=== PATIENT | male | born 1940 | race Hispanic/Latino ===

== ENCOUNTER → 2017-12-03 | Day surgery (SDC) | payer MEDICARE ==
[2017-12-01 08:20] LABS: BASOPHILS # (AUTO) 0.1 (0.0-0.1); BASOPHILS % 1.8 % (0.0-1.0); EOSINOPHILS # (AUTO) 0.1 (0.0-0.4); EOSINOPHILS % 2.9 % (0.0-6.0); HEMATOCRIT 44.3 % (38.2-49.6); LYMPHOCYTES # (AUTO) 1.3 (1.0-3.2); LYMPHOCYTES % 28.8 % (18.0-39.1); MEAN CORPUSCULAR HEMOGLOBIN 32.1 pg (28-32); MEAN CORPUSCULAR HGB CONC 33.9 g/dL (31-35); MEAN CORPUSCULAR VOLUME 94.7 fL (81-99); MONOCYTES # (AUTO) 0.3 (0.2-0.8); MONOCYTES % 7.3 % (4.4-11.3); NEUTROPHILS # (AUTO) 2.7 (2.1-6.9); PLATELET COUNT 230 x10e3/uL (140-360); RED BLOOD COUNT 4.68 x10e6/uL (4.3-5.7); RED CELL DISTRIBUTION WIDTH 13.3 % (11.7-14.4)
[~2017-12-03] MED LIST: ALENDRONATE SOD70 MG PO; CALCIUM; CLOBETASOL1 EA/15 GM; COUMADIN4 MG PO; EPINEPHRINE HCL INJ 1 MG/ML AMP ONE; FENTANYL CITRATE/PF 100MCG/2 ML INJ ONE; FLUTICASONE PRO16 GM; HYOSCYAMINE SULFATE 0.5 MG/ML AMP ONE; KETOCONAZOLE120 ML; LOPID600 MG PO; MIDAZOLAM HCL 2 MG/2 ML VIAL ONE; NEUPRO1 EAC1; VIT D PO; XARELTO20 MG
[2017-12-03 13:30] VITALS: BP 141/84
[2017-12-03 13:53] LABS: INR 1.04; PROTHROMBIN TIME 14.5 seconds (11.9-14.5)
[2017-12-03 13:58] LABS: ALBUMIN 3.9 g/dL (3.5-5.0); ALBUMIN/GLOBULIN RATIO 1.2 (0.8-2.0); ANION GAP 18.3 mmol/L (8-16); CALCIUM 9.7 mg/dL (8.4-10.2); CREATININE, SERUM 1.17 mg/dL (0.72-1.25); POTASSIUM 4.3 mmol/L (3.5-5.1)
--- NOTE | 2017-12-03 15:27 | Operative Report ---
DATE OF PROCEDURE: December 03, 2017 REFERRING PHYSICIAN: Dr. Ike Renee. PROCEDURES PERFORMED: 1. Esophagogastroduodenoscopy with biopsies. 2. Colonoscopy. INDICATIONS FOR ESOPHAGOGASTRODUODENOSCOPY: Dyspepsia. INDICATIONS FOR COLONOSCOPY: Colorectal cancer screening. MEDICATION: Patient was done under MAC. Please see anesthesiologist's note. PROCEDURE: With patient in the left lateral decubitus position, the flexible fiberoptic Olympus gastroscope was introduced into the esophagus under direct visualization without any difficulty. There was some patchy erythema noted in the distal esophagus. The scope was then advanced with ease into the stomach, traversing a small sliding hiatal hernia. Mucosa overlying the antrum and the body revealed some patchy erythema and mild to moderate edema, and biopsies were obtained and sent to stain for H. pylori. Pyloric channel was somewhat stenotic, but it opened up nicely after being traversed several times with the scope. The scope was advanced all the way to the 2nd portion of the duodenum. The mucosa overlying the proximal 2nd portion and the duodenal bulb appeared to be within normal limits. The scope was then withdrawn back into the stomach and retroflexed. Mucosa overlying the fundus and the cardia appeared to be within normal limits. The scope was then straightened out. It was subsequently withdrawn. Patient tolerated the procedure well. IMPRESSION: 1. Distal esophagitis, mild. 2. Grade 1 esophageal varices without active bleeding or stigmata of recent hemorrhage. 3. Small sliding hiatal hernia. 4. Gastritis biopsied. Biopsies sent to stain for H. pylori. PLAN: Follow up histology. Initiate Protonix 40 mg 1 p.o. q.a.m. a.c. Patient was then turned around and after adequate lubrication of the anal canal, a flexible fiberoptic Olympus colonoscope was inserted into the rectum with ease and advanced all the way to the cecum. It was then withdrawn slowly. Mucosa overlying the cecum, ascending colon, transverse colon appeared to be within normal limits. Diverticular disease was noted to involve the distal descending and the sigmoid colon. The rectum appeared to be within normal limits. The scope was then retroflexed into the distal rectum and moderate-sized internal hemorrhoids were noted, none of which was actively bleeding. The scope was then straightened out. It was subsequently withdrawn. Patient tolerated the procedure well. IMPRESSION: 1. Diverticulosis. 2. Internal hemorrhoids, none actively bleeding. PLAN: Initiate high-fiber low-fat diet. Initiate high-fiber supplement. No followup colonoscopy is needed. Job#: [id number] cc:IKE RENEE MD
== END | disposition home or self-care (01) ==
LOC: OR 08:45
PROVIDERS: ATTEND Internal Medicine Gastroenterology
DX: Z12.11 Encounter for screening for malignant neoplasm of colon (principal); R12 Heartburn; K59.00 Constipation, unspecified; R63.4 Abnormal weight loss; R49.0 Dysphonia; K20.9 Esophagitis, unspecified; I85.00 Esophageal varices without bleeding; K44.9 Diaphragmatic hernia without obstruction or gangrene; K29.70 Gastritis, unspecified, without bleeding; K57.30 Diverticulosis of large intestine without perforation or abscess without bleeding; K64.8 Other hemorrhoids; G47.33 Obstructive sleep apnea (adult) (pediatric); I25.10 Atherosclerotic heart disease of native coronary artery without angina pectoris; Z79.01 Long term (current) use of anticoagulants; I48.91 Unspecified atrial fibrillation; I49.9 Cardiac arrhythmia, unspecified; Z01.810 Encounter for preprocedural cardiovascular examination; Z01.812 Encounter for preprocedural laboratory examination
CPT/HCPCS: 43239; G0105; 36415; 45378; 80053; 85025; 85610; 88305; 88312; 93005; J0171; J1980; J2250

== ENCOUNTER → 2018-01-06 | Outpatient (CLI) | payer MEDICARE ==
[~2018-01-06] MED LIST changes: -EPINEPHRINE HCL INJ 1 MG/ML AMP ONE; -FENTANYL CITRATE/PF 100MCG/2 ML INJ ONE; -HYOSCYAMINE SULFATE 0.5 MG/ML AMP ONE; -MIDAZOLAM HCL 2 MG/2 ML VIAL ONE
--- NOTE | 2018-01-06 10:21 | Diagnostic Imaging Report ---
PROCEDURE:US LIVER COMPARISON:None. INDICATIONS:ESOPHAGEAL VARICES W/O BLEEDING TECHNIQUE: Lozada-scale and color doppler transverse and longitudinal images of the right upper quadrant of the abdomen were obtained. FINDINGS: Liver: 12.7 cm in length in right mid-clavicular line. Normal parenchymal echogenicity without overt surface nodularity. No masses. Main portal vein: 0.8 cm in caliber. Hepatopetal flow. Gallbladder: Status post cholecystectomy. Common Bile Duct: 0.3 cm in caliber. Right kidney: 10.1 cm in length. Normal renal cortical echogenicity. No solid masses or hydronephrosis. Pancreas: The visualized portions are unremarkable. Inferior vena cava: Patent Aorta: Non-aneurysmal Ascites: None in the right upper quadrant of the abdomen. CONCLUSION: No overt sonographic evidence of cirrhosis or portal hypertension in this patient with reported history of esophageal varices. Status post cholecystectomy. Dictated by: Michael Sloan M.D. on 01/06/2018 at 10:29 Electronically approved by: Michael Sloan M.D. on 01/06/2018 at 10:29
== END ==
LOC: US 07:30
PROVIDERS: ATTEND Internal Medicine Gastroenterology
DX: I85.00 Esophageal varices without bleeding (principal)
CPT/HCPCS: 76705

== ENCOUNTER 2018-06-19 17:30 | Emergency (ER) | payer MEDICARE ==
[~2018-06-19] VITALS: Ht 177.8 cm; Wt 72.6 kg
--- OUTSIDE RECORDS SUMMARY | 2018-06-19 17:34 | XMS REPORT ---
[facility] Address Unknown Phone Unavailable Care Team Providers Care Photo Colorer Name Role Phone MANUEL CURRY Unavailable Unavailable Problems This patient has no known problems. Allergies, Adverse Reactions, Alerts This patient has no known allergies or adverse reactions. Medications This patient has no known medications. Results Test Description Test Time Test Comments Text Results Atomic Results Result Comments LIVER 2018-01-06 10:29:00 [place] [id number] Patient Name: RAH DORSEY JR MR #: [id number] : 1940 Age/Sex: 77/M Req #: [id number] Adm Physician: Ordered by: MANUEL CURRY MD Report #: [id number] Location: Room/Bed: Procedure: [id number] US/US LIVER Exam Date: 01/06/18 Exam Time: 0830 REPORT STATUS: Signed PROCEDURE: US LIVER COMPARISON: None. INDICATIONS: ESOP HAGEAL VARICES W/O BLEEDING TECHNIQUE: Lozada-scale and color doppler transverse and longitudinal images of the right upper quadrant of the abdomen were obtained. FINDINGS: Liver: 12.7 cm in length in right mid- clavicular line. Normal parenchymal echogenicity without overt surface nodularity. No masses. Main portal vein: 0.8 cm in caliber. Hepatopetal flow. Gallbladder: Status post cholecystectomy. Common Bile Duct: 0.3 cm in caliber. Right kidney: 10.1 cm in length. Normal renal cortical echogenicity. No solid masses or hydronephrosis. Pancreas: The vis ualized portions are unremarkable. Inferior vena cava: Patent Aorta: Non-aneurysmal Ascites: None in the right upper quadrant of the abdomen. CONCLUSION: No overt sonographic evidence of cirrhosis or portal hypertension in this patient with reported history of esophageal varices. Status post cholecystectomy. Dictated by: Yina Aguilar M.D. on 01/06/2018 at 10:29 Electronically approved by: Yina Aguilar M.D. on 01/06/2018 at 10:29 Dictated By: YINA AGUILAR MD [id number] Transcribed By: MANUEL on 01/06/18 1029 COPY TO: MANUEL CURRY MD
--- OUTSIDE RECORDS SUMMARY | 2018-06-19 17:34 | XMS REPORT | Clinical Summary ---
Author Author [facility] Address Unknown Phone Unavailable Care Team Providers Care Student Ministry Pastor Name Role Phone Livan Norwood MD PCP Allergies Not on File Medications Not on file Active Problems Not on file Social History Date Tobacco Use Types Packs/Day Years Used Never Assessed Sex Assigned at Date Recorded Not on file Industry Job Start Date Occupation Not on file Not on file Not on file Travel End Travel History Travel Start No recent travel history available. Last Filed Vital Signs Not on file Plan of Treatment Health Maintenance Due Date Last Done Comments SHINGLES VACCINES (#1) 1990 65+ PNEUMOCOCCAL VACCINE 2005 (1 of 2 - PCV13) PNEUMOCOCCAL 2005 POLYSACCHARIDE VACCINE AGE 65 AND OVER INFLUENZA VACCINE 10/07/2018 Results Not on fileafter 06/18/2017 Insurance Payer Benefit Subscriber ID Type Phone Address Plan / Group [employer] [facility] [employer] x[employer]xx [facility] Advance Directives Patient has advance care planning documents on file. For more information, reid oneill contact: Kuldip Guo [address] [place] [address]
[2018-06-19] MEDS ORDERED: PRAMIPEXOLE D0.25 MG PO (18:03)
[2018-06-19] MEDS ORDERED: PANTOPRAZOLE SO40 MG PO (18:03)
--- NOTE | 2018-06-19 18:56 | Diagnostic Imaging Report ---
Examination: CT head without contrast Clinical Indication: Fall with head injury. Technique: Transaxial noncontrast images from the skull base through the vertex were obtained. Sagittal and coronal reformatted images were done. Dose modulation, iterative reconstruction, and/or weight based adjustment of the mA/kV was utilized to reduce the radiation dose to as low as reasonably achievable. Comparison: None. Findings: Scalp: No abnormalities. Bones: Intact. No fractures. No blastic or lytic lesions. Brain sulci: Moderate volume loss for patient's age. Ventricles: No hydrocephalus. Extra-axial space: No abnormalities. Parenchyma: There are mild confluent areas of low-attenuation within subcortical and periventricular white matter, nonspecific, but could represent microvascular ischemic disease. No masses, hemorrhage, or acute or chronic cortical based vascular insults. Suprasellar region: No abnormalities. Craniocervical junction: The foramen magnum is patent. No Chiari one malformation. Incidental findings: Atherosclerotic calcification of the cavernous and supraclinoid internal carotid and V4 segments of the bilateral vertebral arteries. Impression: 1. No acute intracranial finding. 2. Mild chronic microvascular ischemic change and moderate volume loss. Signed by: Dr. Moriah Valencia M.D. on 06/19/2018 6:53 PM
--- NOTE | 2018-06-19 19:05 | Diagnostic Imaging Report ---
Examination: CT CERVICAL SPINE WO CONTRAST HISTORY:Neck pain and injury after fall. COMPARISON:None. TECHNIQUE: Multidetector helical axial images were obtained without contrast from the foramen magnum to T1. Coronal and sagittal reformatted images were done. Bone and soft tissue windows were evaluated. Dose modulation, iterative reconstruction, and/or weight based adjustment of the mA/kV was utilized to reduce the radiation dose to as low as reasonably achievable. FINDINGS: Alignment:Normal alignment. Vertebrae: Normal height and density. No acute fracture, infection or neoplasm. Disc space heights: Normal height. Caliber of spinal canal: Developmentally normal. Posterior fossa and craniocervical junction: Foramen magnum patent. No Chiari 1 malformation. Soft tissues: No abnormality. Degenerative changes: Mild bilateral facet arthropathy from C3 through C5. Diffuse disc osteophyte complexes at C4-C5 and C5-C6 without canal stenosis. Visualized lung apices: No abnormalities. IMPRESSION: No acute abnormalities. Signed by: Dr. Moriah Valencia M.D. on 06/19/2018 7:01 PM
[2018-06-19 19:56] VITALS: BP 140/76
== END 2018-06-19 20:36 | disposition home or self-care (01) ==
LOC: ER 17:30
DX: S00.83XA Contusion of other part of head, initial encounter (principal); S00.81XA Abrasion of other part of head, initial encounter; W18.30XA Fall on same level, unspecified, initial encounter; Y92.008 Other place in unspecified non-institutional (private) residence as the place of occurrence of the external cause; I48.91 Unspecified atrial fibrillation; G20 Parkinson's disease
CPT/HCPCS: 70450; 72125; 99283

== ENCOUNTER 2020-09-08 09:50 | Emergency (ER) | payer MEDICARE, OTHER ==
[~2020-09-08] VITALS: Ht 177.8 cm; Wt 72.6 kg
[~2020-09-08 09:50] MED LIST changes: +PANTOPRAZOLE SO40 MG PO; +PRAMIPEXOLE D0.25 MG PO
[2020-09-08] MEDS ORDERED: TETANUS/DIPHTHERIA TOX ADULT 0.5 ML SYR IM ONE (10:15)
[2020-09-08] MEDS ORDERED: TETANUS/DIPHTHERIA TOX ADULT 0.5 ML SYR ONE (10:24)
[2020-09-08 11:46] VITALS: BP 134/71
[2020-09-13] MEDS ORDERED: PRAMIPEXOLE D0.25 MG PO (12:41)
[2020-09-13] MEDS ORDERED: GEMFIBROZIL600 MG PO (12:41)
[2020-09-13] MEDS ORDERED: XARELTO20 MG PO (12:41)
[2020-09-13] MEDS ORDERED: PANTOPRAZOLE SO40 MG PO (12:42)
== END 2020-09-08 11:47 | disposition home or self-care (01) ==
LOC: ER 10:25 → MERGE 10:25 → ER 11:47
DX: S01.01XA Laceration without foreign body of scalp, initial encounter (principal); W01.118A Fall on same level from slipping, tripping and stumbling with subsequent striking against other sharp object, initial encounter; Y92.015 Private garage of single-family (private) house as the place of occurrence of the external cause; I48.91 Unspecified atrial fibrillation; E03.9 Hypothyroidism, unspecified; E78.5 Hyperlipidemia, unspecified; K21.9 Gastro-esophageal reflux disease without esophagitis; Z79.01 Long term (current) use of anticoagulants
CPT/HCPCS: 70450; 72125; 90471; 90714; 99283

== ENCOUNTER → 2020-09-17 | Day surgery (SDC) | payer MEDICARE ==
[2020-09-13 13:50] LABS: BASOPHILS # (AUTO) 0.1 (0.0-0.1); EOSINOPHILS # (AUTO) 0.1 (0.0-0.4); EOSINOPHILS % 2.2 % (0.0-6.0); HEMATOCRIT 45.4 % (38.2-49.6); LYMPHOCYTES # (AUTO) 1.4 (1.0-3.2); MEAN CORPUSCULAR HEMOGLOBIN 31.1 pg (28-32); MEAN CORPUSCULAR VOLUME 94.2 fL (81-99); MONOCYTES # (AUTO) 0.5 (0.2-0.8); MONOCYTES % 7.5 % (4.4-11.3); NEUTROPHILS # (AUTO) 3.9 (2.1-6.9); NEUTROPHILS % 64.8 % (38.7-80.0); PLATELET COUNT 232 x10e3/uL (140-360); RED BLOOD COUNT 4.82 x10e6/uL (4.3-5.7); RED CELL DISTRIBUTION WIDTH 13.4 % (11.7-14.4)
[~2020-09-17] MED LIST changes: +FENTANYL CITRATE/PF 100MCG/2 ML INJ ONE; +GEMFIBROZIL600 MG PO; +LIDOCAINE HCL 2% LOCAL INJ 5 ML SDV VIAL INJ ONE; +METOCLOPRAMIDE HCL 10 MG/2ML VIAL ONE; +PROPOFOL IV EMULSION 10 MG/ML 20 ML VIAL ONE; +XARELTO20 MG PO
[2020-09-17 08:30] VITALS: BP 126/72
== END | disposition home or self-care (01) ==
LOC: ENDO 06:08 → MERGE 06:08
PROVIDERS: ATTEND Internal Medicine Gastroenterology
DX: I85.00 Esophageal varices without bleeding (principal); K29.70 Gastritis, unspecified, without bleeding; K20.90 Esophagitis, unspecified without bleeding; K21.9 Gastro-esophageal reflux disease without esophagitis; K44.9 Diaphragmatic hernia without obstruction or gangrene; I48.91 Unspecified atrial fibrillation; I49.5 Sick sinus syndrome; G20 Parkinson's disease; N18.9 Chronic kidney disease, unspecified; R05 Cough; Z01.810 Encounter for preprocedural cardiovascular examination; Z01.812 Encounter for preprocedural laboratory examination; Z79.02 Long term (current) use of antithrombotics/antiplatelets; Z95.0 Presence of cardiac pacemaker; Z91.81 History of falling
CPT/HCPCS: 36415; 43239; 85025; 88305; 88312; 93005; J2001; J2704; J2765; J3010

== ENCOUNTER → 2020-10-03 | Outpatient (CLI) | payer MEDICARE ==
[~2020-10-03] MED LIST changes: -FENTANYL CITRATE/PF 100MCG/2 ML INJ ONE; -LIDOCAINE HCL 2% LOCAL INJ 5 ML SDV VIAL INJ ONE; -METOCLOPRAMIDE HCL 10 MG/2ML VIAL ONE; -PROPOFOL IV EMULSION 10 MG/ML 20 ML VIAL ONE
== END ==
LOC: DX 11:48
PROVIDERS: ATTEND Internal Medicine Gastroenterology
DX: R13.13 Dysphagia, pharyngeal phase (principal); G20 Parkinson's disease
CPT/HCPCS: 74230

== ENCOUNTER → 2020-10-04 | Outpatient (CLI) | payer MEDICARE | LOC: US 07:37 | PROVIDERS: ATTEND Internal Medicine Gastroenterology | DX: I85.00 Esophageal varices without bleeding (principal); K74.60 Unspecified cirrhosis of liver | CPT/HCPCS: 76705 ==

== ENCOUNTER 2020-12-05 10:00 | Outpatient (RCR) | payer MEDICARE | END 2020-12-06 | LOC: ST 10:00 | PROVIDERS: ATTEND Internal Medicine Gastroenterology | DX: R13.13 Dysphagia, pharyngeal phase (principal); G20 Parkinson's disease ==

== ENCOUNTER 2020-12-07 11:56 | Outpatient (RCR) | payer MEDICARE | END 2021-01-06 | LOC: ST 11:56 | PROVIDERS: ATTEND Internal Medicine Gastroenterology | DX: R13.13 Dysphagia, pharyngeal phase (principal); G20 Parkinson's disease ==

== ENCOUNTER → 2020-12-10 | Outpatient (CLI) | payer MEDICARE | LOC: DX 09:37 | PROVIDERS: ATTEND Internal Medicine Gastroenterology | DX: R13.13 Dysphagia, pharyngeal phase (principal); G20 Parkinson's disease; Z20.822 Contact with and (suspected) exposure to COVID-19 | CPT/HCPCS: 74230; 92526; 92611; U0002 ==

== ENCOUNTER 2022-05-04 12:07 | Emergency (ER) | payer MEDICARE ==
[~2022-05-04] VITALS: Ht 177.8 cm; Wt 72.6 kg
[~2022-05-04 12:07] MED LIST changes: +POLYTRIM EYE DR10 ML OD
[2022-05-04 13:09] LABS: ALBUMIN 3.8 g/dL (3.5-5.0); ANION GAP 13.5 mmol/L (8-16); CALCIUM 8.8 mg/dL (8.4-10.2); CREATININE, SERUM 1.12 mg/dL (0.72-1.25); POTASSIUM 4.5 mmol/L (3.5-5.1)
[2022-05-04] MEDS ORDERED: SODIUM CHLORIDE 0.9% 500ML 500 ML IV STA (13:13)
[2022-05-04 13:21] LABS: BASOPHILS % 0.4 % (0.0-1.0); EOSINOPHILS # (AUTO) 0.1 (0.0-0.4); EOSINOPHILS % 0.7 % (0.0-6.0); HEMATOCRIT 38.1 % (38.2-49.6); HEMOGLOBIN 12.8 g/dL (14.0-18.0); LYMPHOCYTES # (AUTO) 0.7 (1.0-3.2); LYMPHOCYTES % 9.5 % (18.0-39.1); MEAN CORPUSCULAR HGB CONC 33.6 g/dL (31-35); MEAN CORPUSCULAR VOLUME 95.3 fL (81-99); MONOCYTES # (AUTO) 0.6 (0.2-0.8); MONOCYTES % 8.8 % (4.4-11.3); NEUTROPHILS # (AUTO) 5.6 (2.1-6.9); NEUTROPHILS % 80.2 % (38.7-80.0); PLATELET COUNT 186 x10e3/uL (140-360); RED CELL DISTRIBUTION WIDTH 12.7 % (11.7-14.4)
[2022-05-04] MEDS ORDERED: SODIUM CHLORIDE 0.9% 500ML 500 ML ONE (13:29)
== END 2022-05-04 14:24 | disposition home or self-care (01) ==
LOC: ER 12:13
DX: R50.9 Fever, unspecified (principal); U07.1 COVID-19; R53.1 Weakness; G20 Parkinson's disease; I48.91 Unspecified atrial fibrillation; E78.5 Hyperlipidemia, unspecified; K21.9 Gastro-esophageal reflux disease without esophagitis; Z95.810 Presence of automatic (implantable) cardiac defibrillator
CPT/HCPCS: 36415; 70450; 71045; 80053; 83880; 84484; 85025; 93005; 99284; J7040; U0002

== ENCOUNTER 2022-07-03 08:41 | Emergency (ER) | payer MEDICARE ==
[~2022-07-03] VITALS: Ht 177.8 cm; Wt 70.5 kg
[2022-07-03] MEDS ORDERED: ONDANSETRON HCL INJ 2MG/ML 2ML 2 MG/ML VIAL IV STA (08:53)
[2022-07-03] MEDS ORDERED: LACTATED RINGER'S 1,000 ML INJ ONE (09:00)
[2022-07-03] MEDS ORDERED: DICYCLOMINE HCL 20 MG/2 ML VIAL IM ONE (09:00)
[2022-07-03 09:02] LABS: BASOPHILS % 0.7 % (0.0-1.0); EOSINOPHILS % 0.7 % (0.0-6.0); HEMOGLOBIN 13.7 g/dL (14.0-18.0); LYMPHOCYTES # (AUTO) 0.6 (1.0-3.2); LYMPHOCYTES % 14.7 % (18.0-39.1); MEAN CORPUSCULAR HEMOGLOBIN 32.4 pg (28-32); MEAN CORPUSCULAR HGB CONC 35.1 g/dL (31-35); MEAN CORPUSCULAR VOLUME 92.2 fL (81-99); MONOCYTES # (AUTO) 0.5 (0.2-0.8); MONOCYTES % 10.7 % (4.4-11.3); NEUTROPHILS # (AUTO) 3.1 (2.1-6.9); NEUTROPHILS % 72.5 % (38.7-80.0); PLATELET COUNT 242 x10e3/uL (140-360); RED BLOOD COUNT 4.23 x10e6/uL (4.3-5.7); RED CELL DISTRIBUTION WIDTH 13.2 % (11.7-14.4)
[2022-07-03 09:30] LABS: ALBUMIN/GLOBULIN RATIO 1.2 (0.8-2.0); ANION GAP 14.4 mmol/L (8-16); CALCIUM 9.3 mg/dL (8.4-10.2); CREATININE, SERUM 1.28 mg/dL (0.72-1.25); POTASSIUM 3.4 mmol/L (3.5-5.1)
[2022-07-03] MEDS ORDERED: DICYCLOMINE HCL20 MG PO (09:52)
[2022-07-03 10:47] VITALS: BP 118/72
== END 2022-07-03 10:48 | disposition home or self-care (01) ==
LOC: ER 08:56
DX: R19.7 Diarrhea, unspecified (principal); I48.91 Unspecified atrial fibrillation; E03.9 Hypothyroidism, unspecified; E78.5 Hyperlipidemia, unspecified; K21.9 Gastro-esophageal reflux disease without esophagitis; G20 Parkinson's disease; Z95.810 Presence of automatic (implantable) cardiac defibrillator; Z85.46 Personal history of malignant neoplasm of prostate; Z85.828 Personal history of other malignant neoplasm of skin
CPT/HCPCS: 36415; 80053; 83690; 85025; 99283; J0500; J2405; J7121

== ENCOUNTER 2022-07-07 17:20 | Inpatient (IN) | payer MEDICARE ==
[~2022-07-07] VITALS: Ht 177.8 cm; Wt 70.3 kg
[~2022-07-07 17:20] MED LIST changes: +DICYCLOMINE HCL20 MG PO
[2022-07-07] MEDS ORDERED: SODIUM CHLORIDE 0.9% 1000ML 1,000 ML IV STA (17:32)
[2022-07-07 18:04] LABS: BASOPHILS % 0.7 % (0.0-1.0); EOSINOPHILS # (AUTO) 0.1 (0.0-0.4); EOSINOPHILS % 1.4 % (0.0-6.0); HEMATOCRIT 36.4 % (38.2-49.6); HEMOGLOBIN 13.3 g/dL (14.0-18.0); LYMPHOCYTES # (AUTO) 0.6 (1.0-3.2); LYMPHOCYTES % 12.8 % (18.0-39.1); MEAN CORPUSCULAR HEMOGLOBIN 32.5 pg (28-32); MEAN CORPUSCULAR HGB CONC 36.5 g/dL (31-35); MONOCYTES # (AUTO) 0.5 (0.2-0.8); MONOCYTES % 10.5 % (4.4-11.3); NEUTROPHILS # (AUTO) 3.2 (2.1-6.9); NEUTROPHILS % 73.7 % (38.7-80.0); PLATELET COUNT 299 x10e3/uL (140-360); RED BLOOD COUNT 4.09 x10e6/uL (4.3-5.7); RED CELL DISTRIBUTION WIDTH 12.6 % (11.7-14.4)
[2022-07-07 18:26] LABS: ALANINE AMINOTRANSFERASE 6 IU/L (0-55); ALBUMIN 3.6 g/dL (3.5-5.0); ALBUMIN/GLOBULIN RATIO 1.1 (0.8-2.0); ALKALINE PHOSPHATASE 79 IU/L (40-150); ANION GAP 16.3 mmol/L (8-16); BLOOD UREA NITROGEN 14 mg/dL (7-26); BUN/CREATININE RATIO 12 (6-25); CALCIUM 9.2 mg/dL (8.4-10.2); CARBON DIOXIDE 22 mmol/L (22-29); CHLORIDE 96 mmol/L (98-107); CREATINE KINASE 48 IU/L (30-200); CREATININE, SERUM 1.18 mg/dL (0.72-1.25); GLUCOSE 98 mg/dL (74-118); LIPASE 45 U/L (8-78); POTASSIUM 3.3 mmol/L (3.5-5.1); SODIUM 131 mmol/L (136-145)
[2022-07-07 19:20] VITALS: PULSE 56; RESP 18; O2SAT 98
[2022-07-07] MEDS: SODIUM CHLORIDE 0.9% 1000ML 1,000 ML IV SCH ×2 (20:32→22:12)
[2022-07-07 21:35] VITALS: BP 125/62; PULSE 52; RESP 18; TEMP 98.2; O2SAT 99
[2022-07-07 22:00] VITALS: BP 129/74; PULSE 61; RESP 17; TEMP 98.6; O2SAT 100
[2022-07-07] MEDS ORDERED: CARBIDOPA-LEVO1 EACH PO (23:56)
[2022-07-07] MEDS ORDERED: TAMSULOSIN PO (23:56)
[2022-07-08] VITALS (10 sets, daily range): BP systolic 110–131; BP diastolic 61–71; PULSE 50–59; RESP 16–20; TEMP 97.3–98.2; O2SAT 94–100
[2022-07-08] MEDS ORDERED: COLESTIPOL HCL1 GM PO (02:34)
[2022-07-08 02:52] LABS: CREATINE KINASE MB 1.3 ng/mL (0-5.0)
[2022-07-08 05:43] LABS: EOSINOPHILS # (AUTO) 0.1 (0.0-0.4); EOSINOPHILS % 1.6 % (0.0-6.0); HEMATOCRIT 32.8 % (38.2-49.6); HEMOGLOBIN 11.5 g/dL (14.0-18.0); LYMPHOCYTES # (AUTO) 0.5 (1.0-3.2); LYMPHOCYTES % 12.9 % (18.0-39.1); MEAN CORPUSCULAR HEMOGLOBIN 31.9 pg (28-32); MEAN CORPUSCULAR HGB CONC 35.1 g/dL (31-35); MEAN CORPUSCULAR VOLUME 90.9 fL (81-99); MONOCYTES # (AUTO) 0.5 (0.2-0.8); MONOCYTES % 11.6 % (4.4-11.3); NEUTROPHILS # (AUTO) 2.8 (2.1-6.9); NEUTROPHILS % 72.1 % (38.7-80.0); PLATELET COUNT 291 x10e3/uL (140-360); RED BLOOD COUNT 3.61 x10e6/uL (4.3-5.7); RED CELL DISTRIBUTION WIDTH 12.7 % (11.7-14.4)
[2022-07-08 06:11] LABS: ANION GAP 13.2 mmol/L (8-16); CALCIUM 8.4 mg/dL (8.4-10.2); CREATININE, SERUM 0.95 mg/dL (0.72-1.25); POTASSIUM 3.2 mmol/L (3.5-5.1)
[2022-07-08 10:40] LABS: CREATINE KINASE MB 1.2 ng/mL (0-5.0)
[2022-07-08] MEDS ORDERED: IOPAMIDOL 370 MG/ML 100 ML INFUS..BTL INJ ONE (11:01)
[2022-07-08] MEDS: RIVAROXABAN 20 MG TABLET PO SCH (12:21)
[2022-07-08] MEDS: POTASSIUM CHL 40 MEQ in SODIUM CHLORIDE 0.9% 1000ML 1,000 ML IV SCH ×2 (12:22→21:12)
[2022-07-08] MEDS: DICYCLOMINE HCL 20 MG TAB PO SCH ×2 (15:40→20:26)
[2022-07-08] MEDS: CARBIDOPA/LEVODOPA 10/100 TAB PO SCH ×2 (15:40→20:26)
[2022-07-08] MEDS: TAMSULOSIN HCL 0.4 MG CAP PO SCH (16:47)
[2022-07-08] MEDS ORDERED: COLESTIPOL HCL 1 G TAB PO SCH (18:00)
[2022-07-09] VITALS (10 sets, daily range): BP systolic 103–122; BP diastolic 58–68; PULSE 49–68; RESP 15–22; TEMP 97.7–98.7; O2SAT 97–100
[2022-07-09] MEDS: POTASSIUM CHL 40 MEQ in SODIUM CHLORIDE 0.9% 1000ML 1,000 ML IV SCH ×3 (00:06→17:01)
[2022-07-09 05:19] LABS: BASOPHILS # (AUTO) 0.1 (0.0-0.1); BASOPHILS % 0.9 % (0.0-1.0); EOSINOPHILS # (AUTO) 0.1 (0.0-0.4); EOSINOPHILS % 1.1 % (0.0-6.0); HEMATOCRIT 31.8 % (38.2-49.6); HEMOGLOBIN 11.1 g/dL (14.0-18.0); LYMPHOCYTES # (AUTO) 0.5 (1.0-3.2); LYMPHOCYTES % 8.1 % (18.0-39.1); MEAN CORPUSCULAR HEMOGLOBIN 31.7 pg (28-32); MEAN CORPUSCULAR HGB CONC 34.9 g/dL (31-35); MEAN CORPUSCULAR VOLUME 90.9 fL (81-99); MONOCYTES # (AUTO) 0.5 (0.2-0.8); MONOCYTES % 9.2 % (4.4-11.3); NEUTROPHILS # (AUTO) 4.5 (2.1-6.9); NEUTROPHILS % 80.2 % (38.7-80.0); PLATELET COUNT 251 x10e3/uL (140-360)
[2022-07-09 05:36] LABS: ANION GAP 11.4 mmol/L (8-16); CALCIUM 8.1 mg/dL (8.4-10.2); CREATININE, SERUM 0.89 mg/dL (0.72-1.25); POTASSIUM 3.4 mmol/L (3.5-5.1)
[2022-07-09] MEDS ORDERED: POTASSIUM CHLORIDE 10MEQ EA PO ONE (09:30)
[2022-07-09] MEDS: DICYCLOMINE HCL 20 MG TAB PO SCH ×3 (09:35→21:14)
[2022-07-09] MEDS: RIVAROXABAN 20 MG TABLET PO SCH (09:35)
[2022-07-09] MEDS: PANTOPRAZOLE SOD 40 MG TABEC PO SCH (09:35)
[2022-07-09] MEDS: TAMSULOSIN HCL 0.4 MG CAP PO SCH ×2 (09:35→17:00)
[2022-07-09] MEDS: CHOLESTYRAMINE 4 GM PACKET PO SCH ×3 (09:35→21:59)
[2022-07-09] MEDS: CARBIDOPA/LEVODOPA 10/100 TAB PO SCH ×3 (09:35→21:14)
[2022-07-09] MEDS: METRONIDAZOLE 500MG/NS 100ML 100 ML IV SCH ×2 (09:36→16:59)
[2022-07-09] MEDS ORDERED: SODIUM CHLORIDE 0.9% 250ML 250 ML ONE (09:45)
[2022-07-09 10:02] LABS: WBC,FECAL (FECAL LACTOFERRIN) POSITIVE (NEGATIVE)
[2022-07-09] MEDS ORDERED: PROPOFOL IV EMULSION 10 MG/ML 20 ML VIAL ONE (12:17)
[2022-07-10] VITALS (8 sets, daily range): BP systolic 96–120; BP diastolic 57–69; PULSE 50–93; RESP 16–18; TEMP 97.5–98.5; O2SAT 95–100
[2022-07-10] MEDS: METRONIDAZOLE 500MG/NS 100ML 100 ML IV SCH ×3 (03:19→17:09)
[2022-07-10] MEDS: POTASSIUM CHL 40 MEQ in SODIUM CHLORIDE 0.9% 1000ML 1,000 ML IV SCH (03:20)
[2022-07-10] MEDS: DICYCLOMINE HCL 20 MG TAB PO SCH ×3 (09:18→21:40)
[2022-07-10] MEDS: PANTOPRAZOLE SOD 40 MG TABEC PO SCH (09:18)
[2022-07-10] MEDS: RIVAROXABAN 20 MG TABLET PO SCH (09:18)
[2022-07-10] MEDS: TAMSULOSIN HCL 0.4 MG CAP PO SCH ×2 (09:18→16:24)
[2022-07-10] MEDS: CARBIDOPA/LEVODOPA 10/100 TAB PO SCH ×3 (09:18→21:40)
[2022-07-10] MEDS: CHOLESTYRAMINE 4 GM PACKET PO SCH ×3 (09:32→21:40)
[2022-07-10] MEDS: KCL 40MEQ/0.9% SOD CHL 1,000 ML IV SCH (13:18)
[2022-07-10 14:30] LABS: BASOPHILS % 0.6 % (0.0-1.0); EOSINOPHILS # (AUTO) 0.1 (0.0-0.4); EOSINOPHILS % 1.2 % (0.0-6.0); HEMATOCRIT 33.2 % (38.2-49.6); HEMOGLOBIN 11.5 g/dL (14.0-18.0); LYMPHOCYTES # (AUTO) 0.6 (1.0-3.2); LYMPHOCYTES % 12.6 % (18.0-39.1); MEAN CORPUSCULAR HGB CONC 34.6 g/dL (31-35); MEAN CORPUSCULAR VOLUME 92.5 fL (81-99); MONOCYTES # (AUTO) 0.5 (0.2-0.8); MONOCYTES % 10.4 % (4.4-11.3); NEUTROPHILS # (AUTO) 3.7 (2.1-6.9); NEUTROPHILS % 74.2 % (38.7-80.0); PLATELET COUNT 245 x10e3/uL (140-360); RED BLOOD COUNT 3.59 x10e6/uL (4.3-5.7); RED CELL DISTRIBUTION WIDTH 13.9 % (11.7-14.4)
[2022-07-10 14:49] LABS: CALCIUM 8.5 mg/dL (8.4-10.2); CREATININE, SERUM 0.89 mg/dL (0.72-1.25)
[2022-07-10] MEDS ORDERED: BISACODYL 5 MG TAB EC PO ONE (23:30)
[2022-07-10 23:53] LABS: % IRON SATURATION 13 % (15-50); IRON 33 ug/dL (65-175); TOTAL IRON BINDING CAPACITY 251 ug/dL (261-478); TRANSFERRIN 179 mg/dL (174-364)
[2022-07-11] VITALS (9 sets, daily range): BP systolic 99–138; BP diastolic 60–69; PULSE 50–68; RESP 16–19; TEMP 97.6–98.7; O2SAT 97–100
[2022-07-11] MEDS ORDERED: BISACODYL 5 MG TAB EC PO ONE (00:30)
[2022-07-11] MEDS: KCL 40MEQ/0.9% SOD CHL 1,000 ML IV SCH ×3 (00:35→21:44)
[2022-07-11] MEDS: METRONIDAZOLE 500MG/NS 100ML 100 ML IV SCH ×3 (01:13→18:08)
[2022-07-11] MEDS ORDERED: CITRATE OF MAGNESIA 300ML BOTTLE PO ONE ×2 (05:00→07:00)
[2022-07-11] MEDS: ONDANSETRON HCL INJ 2MG/ML 2ML 2 MG/ML VIAL IV PRN (06:17)
[2022-07-11] MEDS ORDERED: METOCLOPRAMIDE HCL 10 MG/2ML VIAL IV PRN (07:45)
[2022-07-11] MEDS: PANTOPRAZOLE SOD 40 MG TABEC PO SCH (08:45)
[2022-07-11] MEDS: CARBIDOPA/LEVODOPA 10/100 TAB PO SCH ×3 (08:45→21:44)
[2022-07-11] MEDS: DICYCLOMINE HCL 20 MG TAB PO SCH ×3 (08:59→21:44)
[2022-07-11] MEDS: TAMSULOSIN HCL 0.4 MG CAP PO SCH ×2 (09:00→17:00)
[2022-07-11] MEDS: CHOLESTYRAMINE 4 GM PACKET PO SCH ×3 (09:00→21:00)
[2022-07-11] MEDS: RIVAROXABAN 20 MG TABLET PO SCH (09:00)
[2022-07-12] VITALS (7 sets, daily range): BP systolic 101–138; BP diastolic 60–79; PULSE 50–68; RESP 16–19; TEMP 97.5–98.7; O2SAT 99–100
[2022-07-12] MEDS: METRONIDAZOLE 500MG/NS 100ML 100 ML IV SCH ×3 (03:43→17:00)
[2022-07-12] MEDS: KCL 40MEQ/0.9% SOD CHL 1,000 ML IV SCH ×2 (05:07→11:30)
[2022-07-12] MEDS: DICYCLOMINE HCL 20 MG TAB PO SCH ×3 (08:21→21:15)
[2022-07-12] MEDS: PANTOPRAZOLE SOD 40 MG TABEC PO SCH (08:21)
[2022-07-12] MEDS: TAMSULOSIN HCL 0.4 MG CAP PO SCH ×2 (08:21→16:44)
[2022-07-12] MEDS: RIVAROXABAN 20 MG TABLET PO SCH (08:21)
[2022-07-12] MEDS: CARBIDOPA/LEVODOPA 10/100 TAB PO SCH ×3 (08:21→21:15)
[2022-07-12] MEDS: CHOLESTYRAMINE 4 GM PACKET PO SCH ×3 (08:22→21:15)
[2022-07-12] MEDS: ONDANSETRON HCL INJ 2MG/ML 2ML 2 MG/ML VIAL IV PRN (19:12)
[2022-07-13] VITALS (7 sets, daily range): BP systolic 99–119; BP diastolic 58–69; PULSE 50–64; RESP 16–20; TEMP 97.3–98.3; O2SAT 98–100
[2022-07-13] MEDS: METHYLPREDNISOLONE SOD SUCC 40 MG/ML VIAL 1ML IV SCH ×6 (00:57→23:39)
[2022-07-13] MEDS: METRONIDAZOLE 500MG/NS 100ML 100 ML IV SCH ×3 (00:57→16:57)
[2022-07-13] MEDS: KCL 40MEQ/0.9% SOD CHL 1,000 ML IV SCH (00:57)
[2022-07-13 06:14] LABS: BASOPHILS % 0.3 % (0.0-1.0); HEMATOCRIT 32.4 % (38.2-49.6); HEMOGLOBIN 11.3 g/dL (14.0-18.0); LYMPHOCYTES # (AUTO) 0.3 (1.0-3.2); LYMPHOCYTES % 4.5 % (18.0-39.1); MEAN CORPUSCULAR HEMOGLOBIN 32.3 pg (28-32); MEAN CORPUSCULAR HGB CONC 34.9 g/dL (31-35); MEAN CORPUSCULAR VOLUME 92.6 fL (81-99); MONOCYTES # (AUTO) 0.1 (0.2-0.8); MONOCYTES % 1.3 % (4.4-11.3); NEUTROPHILS # (AUTO) 5.9 (2.1-6.9); NEUTROPHILS % 93.4 % (38.7-80.0); PLATELET COUNT 271 x10e3/uL (140-360); RED CELL DISTRIBUTION WIDTH 13.9 % (11.7-14.4)
[2022-07-13 06:37] LABS: ANION GAP 10.2 mmol/L (8-16); CALCIUM 8.3 mg/dL (8.4-10.2); CREATININE, SERUM 0.93 mg/dL (0.72-1.25); POTASSIUM 4.2 mmol/L (3.5-5.1)
[2022-07-13] MEDS ORDERED: SODIUM CHLORIDE 0.9% 100 ML ONE (07:43)
[2022-07-13] MEDS: CARBIDOPA/LEVODOPA 10/100 TAB PO SCH ×3 (08:30→19:59)
[2022-07-13] MEDS: DICYCLOMINE HCL 20 MG TAB PO SCH ×3 (08:30→19:59)
[2022-07-13] MEDS: TAMSULOSIN HCL 0.4 MG CAP PO SCH ×2 (08:30→16:29)
[2022-07-13] MEDS: RIVAROXABAN 20 MG TABLET PO SCH (08:30)
[2022-07-13] MEDS: CHOLESTYRAMINE 4 GM PACKET PO SCH ×3 (08:31→21:00)
[2022-07-13] MEDS: IRON SUCROSE 100 MG in SODIUM CHLORIDE 0.9% 100 ML IV SCH (09:00)
[2022-07-13] MEDS ORDERED: DIPHENOXYLATE/ATROPINE TAB PO STA (23:17)
[2022-07-14] VITALS (9 sets, daily range): BP systolic 108–125; BP diastolic 65–78; PULSE 50–67; RESP 17–18; TEMP 97.5–98.3; O2SAT 98–100
[2022-07-14] MEDS: METRONIDAZOLE 500MG/NS 100ML 100 ML IV SCH ×3 (01:08→17:40)
[2022-07-14] MEDS: METHYLPREDNISOLONE SOD SUCC 40 MG/ML VIAL 1ML IV SCH ×4 (06:00→23:22)
[2022-07-14] MEDS: CHOLESTYRAMINE 4 GM PACKET PO SCH ×2 (09:00→14:54)
[2022-07-14] MEDS ORDERED: LATANOPROST 0.7.5 ML OS (10:14)
[2022-07-14] MEDS: IRON SUCROSE 100 MG in SODIUM CHLORIDE 0.9% 100 ML IV SCH (10:15)
[2022-07-14] MEDS: RIVAROXABAN 20 MG TABLET PO SCH (10:16)
[2022-07-14] MEDS: TAMSULOSIN HCL 0.4 MG CAP PO SCH ×2 (10:16→17:40)
[2022-07-14] MEDS: CARBIDOPA/LEVODOPA 10/100 TAB PO SCH ×3 (10:16→20:27)
[2022-07-14] MEDS: DICYCLOMINE HCL 20 MG TAB PO SCH ×3 (10:16→20:27)
[2022-07-14] MEDS: KCL 40MEQ/0.9% SOD CHL 1,000 ML IV SCH (12:23)
[2022-07-14] MEDS ORDERED: DIPHENOXYLATE/ATROPINE TAB PO STA (23:48)
[2022-07-15] VITALS (7 sets, daily range): BP systolic 98–135; BP diastolic 72–77; PULSE 50–55; RESP 17–20; TEMP 97.3–98.4; O2SAT 96–100
[2022-07-15] MEDS: METRONIDAZOLE 500MG/NS 100ML 100 ML IV SCH ×3 (01:58→17:19)
[2022-07-15] MEDS: METHYLPREDNISOLONE SOD SUCC 40 MG/ML VIAL 1ML IV SCH ×3 (06:26→17:19)
[2022-07-15] MEDS: RIVAROXABAN 20 MG TABLET PO SCH (09:47)
[2022-07-15] MEDS: TAMSULOSIN HCL 0.4 MG CAP PO SCH ×2 (09:47→16:10)
[2022-07-15] MEDS: DICYCLOMINE HCL 20 MG TAB PO SCH ×3 (09:47→20:43)
[2022-07-15] MEDS: CARBIDOPA/LEVODOPA 10/100 TAB PO SCH ×3 (09:47→20:43)
[2022-07-15] MEDS: IRON SUCROSE 100 MG in SODIUM CHLORIDE 0.9% 100 ML IV SCH (09:48)
[2022-07-15] MEDS ORDERED: DIPHENOXYLATE/ATROPINE TAB PO ONE (11:30)
[2022-07-15] MEDS: KCL 40MEQ/0.9% SOD CHL 1,000 ML IV SCH (11:45)
[2022-07-16] VITALS (8 sets, daily range): BP systolic 96–149; BP diastolic 61–86; PULSE 50–60; RESP 17–20; TEMP 97.7–98.5; O2SAT 93–100
[2022-07-16] MEDS: METHYLPREDNISOLONE SOD SUCC 40 MG/ML VIAL 1ML IV SCH ×4 (00:31→18:00)
[2022-07-16] MEDS: KCL 40MEQ/0.9% SOD CHL 1,000 ML IV SCH (00:31)
[2022-07-16] MEDS: METRONIDAZOLE 500MG/NS 100ML 100 ML IV SCH ×2 (00:31→10:33)
[2022-07-16 06:06] LABS: BASOPHILS % 0.3 % (0.0-1.0); HEMOGLOBIN 11.3 g/dL (14.0-18.0); LYMPHOCYTES # (AUTO) 0.4 (1.0-3.2); LYMPHOCYTES % 3.1 % (18.0-39.1); MEAN CORPUSCULAR HGB CONC 35.3 g/dL (31-35); MEAN CORPUSCULAR VOLUME 90.7 fL (81-99); MONOCYTES # (AUTO) 0.2 (0.2-0.8); MONOCYTES % 1.9 % (4.4-11.3); NEUTROPHILS # (AUTO) 10.5 (2.1-6.9); NEUTROPHILS % 92.6 % (38.7-80.0); PLATELET COUNT 292 x10e3/uL (140-360); RED BLOOD COUNT 3.53 x10e6/uL (4.3-5.7); RED CELL DISTRIBUTION WIDTH 13.7 % (11.7-14.4)
[2022-07-16 06:30] LABS: ANION GAP 10.6 mmol/L (8-16); CALCIUM 7.9 mg/dL (8.4-10.2); CREATININE, SERUM 0.85 mg/dL (0.72-1.25); POTASSIUM 3.6 mmol/L (3.5-5.1)
[2022-07-16] MEDS ORDERED: PROMETHAZINE 12.5MG/ NACL 0.9% 12.5 MG/50 ML BAG IV PRN (09:00)
[2022-07-16] MEDS: DICYCLOMINE HCL 20 MG TAB PO SCH ×3 (10:31→22:24)
[2022-07-16] MEDS: TAMSULOSIN HCL 0.4 MG CAP PO SCH (10:31)
[2022-07-16] MEDS: RIVAROXABAN 20 MG TABLET PO SCH (10:31)
[2022-07-16] MEDS: CARBIDOPA/LEVODOPA 10/100 TAB PO SCH ×3 (10:31→22:24)
[2022-07-16] MEDS ORDERED: ONDANSETRON HCL INJ 2MG/ML 2ML 2 MG/ML VIAL IV PRN (10:45)
[2022-07-16] MEDS ORDERED: SODIUM CHLORIDE 0.9% 1000ML 1,000 ML ONE (12:28)
[2022-07-17] MEDS: METHYLPREDNISOLONE SOD SUCC 40 MG/ML VIAL 1ML IV SCH ×2 (00:15→05:25)
[2022-07-17 00:19] VITALS: BP 122/71; PULSE 50; RESP 16; TEMP 98; O2SAT 98
[2022-07-17 01:56] VITALS: BP 122/71; PULSE 50; RESP 16; TEMP 98; O2SAT 98
[2022-07-17 05:12] VITALS: BP 137/80; PULSE 50; RESP 17; TEMP 97.3; O2SAT 98
[2022-07-17] MEDS: DICYCLOMINE HCL 20 MG TAB PO SCH (08:39)
[2022-07-17] MEDS: TAMSULOSIN HCL 0.4 MG CAP PO SCH ×2 (08:39→10:14)
[2022-07-17] MEDS: CARBIDOPA/LEVODOPA 10/100 TAB PO SCH (08:39)
[2022-07-17] MEDS: RIVAROXABAN 20 MG TABLET PO SCH (08:39)
[2022-07-17 10:28] VITALS: BP 137/80; PULSE 50; RESP 17; TEMP 97.3; O2SAT 98
[2022-07-17] MEDS ORDERED: ONDANSETRON HCL 4 MG ORAL DISINTEGRATING TAB PO PRN (11:30)
[2022-07-17] MEDS ORDERED: PANTOPRAZOLE SOD 40 MG TABEC PO SCH (16:30)
== END 2022-07-17 12:01 | disposition home or self-care (01) | DRG 394 ==
LOC: ER 17:31 → ERHOLD 18:36 → MED/SURG2 21:38 → OBSVTOIN 07-09 15:14
PROVIDERS: ADMIT Internal Medicine; ATTEND Internal Medicine
PROC: 0DBP8ZX Excision of Rectum, Via Natural or Artificial Opening Endoscopic, Diagnostic (ICD-10-PCS; 2022-07-11)
PROC: 0DBB8ZX Excision of Ileum, Via Natural or Artificial Opening Endoscopic, Diagnostic (ICD-10-PCS; principal; 2022-07-11 16:48)
PROC: 0DBE8ZX Excision of Large Intestine, Via Natural or Artificial Opening Endoscopic, Diagnostic (ICD-10-PCS; 2022-07-11 16:48)
DX: K52.1 Toxic gastroenteritis and colitis (principal); I48.19 Other persistent atrial fibrillation; T45.1X5A Adverse effect of antineoplastic and immunosuppressive drugs, initial encounter; E86.0 Dehydration; G20 Parkinson's disease; E87.8 Other disorders of electrolyte and fluid balance, not elsewhere classified; E03.9 Hypothyroidism, unspecified; Z95.810 Presence of automatic (implantable) cardiac defibrillator; Z20.822 Contact with and (suspected) exposure to COVID-19
CPT/HCPCS: 0223U; 36415; 45378; 45380; 71045; 74177; 80048; 80053; 82550; 82553; 82607; 82746; 83540; 83630; 83690; 83993; 84466; 84484; 85025; 85045; 87045; 87177; 87324; 87328; 87449; 88305; 93005; 94799; 96361; 99284; G0378; J0696; J1756; J2405; J2920; J3480; J7030; J7050; Q9967